=== PATIENT | female | born 1980 | race Caucasian/White ===

== ENCOUNTER 2016-10-08 23:27 | Emergency (ER) | payer MEDICAID ==
--- NOTE | 2016-10-09 00:06 | EDM.PDOC ---
ED HPI GENERAL MEDICAL PROBLEM - General Chief Complaint: ENT Problem Stated Complaint: INFECTED RIGHT EYE Time Seen by Provider: 10/09/16 00:08 Source of Information: Reports: Patient History Limitations: Reports: No Limitations - History of Present Illness INITIAL COMMENTS - FREE TEXT/NARRATIVE: pt is concerned because she has swelling under the rt eye. She has 2 styes one on the upper lid and a larger one on the lower lid with redness around it. Onset: Gradual, Other ( swelling under the eye started today. ) Duration: Hour(s): Associated Symptoms: Reports: No Other Symptoms denies pain Pain Score (Numeric/FACES): 0 - Related Data Allergies Allergy/AdvReac Type Severity Reaction Status Date / Time No Known Allergies Allergy Verified 10/08/16 23:52 Home Meds: Home Meds NK [No Known Home Meds] 10/08/16 [History] Past Medical History HEENT History: Reports: Impaired Vision [employer] History: Reports: - Past Surgical History Female Surgical History: Reports: Section Social & Family History - Tobacco Use Smoking Status *Q: Never Smoker - Caffeine Use Caffeine Use: Reports: Coffee, Soda - Recreational Drug Use Recreational Drug Use: No ED ROS ENT - Review of Systems Review Of Systems: See Below Constitutional: Reports: No Symptoms HEENT: Reports: Eye Discharge, Eye Pain, Other (pt has 2 styes in the rt eye one on the upper lid and one on the lower lid. The one on the lower is quite red. ) Cardiovascular: Reports: No Symptoms Endocrine: Reports: No Symptoms GI/Abdominal: Reports: No Symptoms : Reports: No Symptoms Musculoskeletal: Reports: No Symptoms ED EXAM, ENT - Physical Exam Exam: See Below Text/Narrative:: pt has 2 styes on the rt eye. The smaller one is on the upper lid and the larger one is on the lower. There is redness around the lower lid and there is swellin on the area below the eye. Exam Limited By: No Limitations General Appearance: Alert, Anxious, Other ( the rt eye has 2 styes a smaller one that appeared first on the upper lid and a larger one in the lower lid with redness around it. There is slight swelling below the rt eye. There is no redness in the conjuntivia. ) Ears: Normal TMs Nose: Normal Inspection Mouth/Throat: Normal Inspection Head: Atraumatic Neck: Normal Inspection Respiratory/Chest: No Respiratory Distress Course - Vital Signs Last Recorded V/S: Last Vital Signs Temp 37.2 C 10/08/16 23:46 Pulse 81 10/08/16 23:46 Resp 18 10/08/16 23:46 BP 113/69 10/08/16 23:46 Pulse Ox 97 10/08/16 23:46 Departure - Departure Time of Disposition: 00:03 Disposition: Home, Self-Care 01 Condition: fair Clinical Impression: Stye, Cellulitis of right lower eyelid - Discharge Information Referrals: Gely Mcdonald PA [Primary Care Provider] - Forms: ED Department Discharge Care Plan Goals: moist warm packs to the rt eye multiple times daily, rtc if the swelling below the eye gets worse. keflex 500mg tid take 2 capsules tonight.
== END 2016-10-09 00:20 | disposition home or self-care (01) ==
LOC: JP.ED 23:27
DX: H00.032 Abscess of right lower eyelid (principal); H00.011 Hordeolum externum right upper eyelid; H00.012 Hordeolum externum right lower eyelid
CPT/HCPCS: 99283

== ENCOUNTER 2022-04-08 18:17 | Observation (INO) | payer MEDICAID ==
[2022-04-08] MEDS ORDERED: Ondansetron 4 MG/2 ML SDV IVPUSH ONE (18:57)
[2022-04-08] MEDS ORDERED: HYDROmorphone 0.5 MG/0.5 ML Syringe IVPUSH ONE ×3 (18:57→21:34)
[2022-04-08] MEDS ORDERED: Sodium Chloride 0.9% 1,000 ML IV SCH (19:00)
[2022-04-08 19:30] LABS: ESTIMATED GFR 111 mL/min (>60)
[2022-04-08] MEDS ORDERED: Ampicillin/Sulbactam Na 1.5 GM in Sodium Chloride 0.9% 50 ML IV ONE (19:59)
[2022-04-08] MEDS ORDERED: Ampicillin/Sulbactam Na 1.5 GM Vial ONE (20:25)
[2022-04-08] MEDS ORDERED: Sodium Chloride 0.9% 50 ML ONE (20:26)
[2022-04-08] MEDS ORDERED: oxyCODONE 5 MG Tab PO PRN (22:17)
[2022-04-08] MEDS ORDERED: Ondansetron 4 MG/2 ML SDV IVPUSH PRN (22:22)
[2022-04-08] MEDS: Lactated Ringers 1,000 ML IV SCH (22:33)
[2022-04-08] MEDS: Acetaminophen 500 MG Tab PO SCH (22:37)
[2022-04-09] MEDS ORDERED: HYDROmorphone 0.5 MG/0.5 ML Syringe IVPUSH PRN (01:30)
[2022-04-09] MEDS ORDERED: Ampicillin/Sulbactam Na 1.5 GM in Sodium Chloride 0.9% 50 ML IV SCH (02:00)
[2022-04-09] MEDS ORDERED: Bupivacaine 0.5%/EPINEPHrine 1:200,000 50 ML MDV ONE (05:25)
[2022-04-09] MEDS ORDERED: fentaNYL 250 MCG/5 ML SDV ONE (05:54)
[2022-04-09] MEDS ORDERED: Neostigmine Methylsulfate 1 MG/ML 5 ML Syringe ONE (05:55)
[2022-04-09] MEDS ORDERED: Dexamethasone 4 MG/ML SDV ONE (05:55)
[2022-04-09] MEDS ORDERED: Glycopyrrolate 0.2 MG/ML 5 ML MDV ONE (05:55)
[2022-04-09] MEDS ORDERED: Rocuronium 50 MG/5 ML Vial ONE (05:55)
[2022-04-09] MEDS ORDERED: Ondansetron 4 MG/2 ML SDV ONE (05:55)
[2022-04-09] MEDS ORDERED: Propofol 200 MG/20 ML SDV ONE (05:55)
[2022-04-09] MEDS ORDERED: Ampicillin/Sulbactam Na 1.5 GM in Sodium Chloride 0.9% 50 ML IV ONE (06:04)
[2022-04-09] MEDS ORDERED: Lactated Ringers 1,000 ML ONE (06:43)
[2022-04-09] MEDS: Acetaminophen 500 MG Tab PO SCH (06:48)
[2022-04-09] MEDS ORDERED: fentaNYL 100 MCG/2 ML SDV ONE (07:22)
[2022-04-09] MEDS: Lactated Ringers 1,000 ML IV SCH (09:03)
== END 2022-04-09 13:44 | disposition home or self-care (01) ==
LOC: JP.ED 18:17 → UNDOADMIN 20:45 → INTOOBSV 20:45 → JP.2SS 20:45
PROVIDERS: ADMIT Student in an Organized Health Care Education/Training Program; ATTEND Student in an Organized Health Care Education/Training Program
DX: K35.33 Acute appendicitis with perforation, localized peritonitis, and gangrene, with abscess (principal); K42.9 Umbilical hernia without obstruction or gangrene; D64.9 Anemia, unspecified; E66.9 Obesity, unspecified; K21.9 Gastro-esophageal reflux disease without esophagitis; Z79.899 Other long term (current) drug therapy; Z86.16 Personal history of COVID-19; Z20.822 Contact with and (suspected) exposure to COVID-19
CPT/HCPCS: 36415; 44970; 74176; 80048; 80053; 81001; 81025; 83690; 83735; 84100; 85025; 85027; 87635; 88304; 96361; 96365; 96375; 96376; 99285; A9270; G0378; J0295; J1100; J1170; J2405; J2704; J2710; J3010; J3490; J7030; J7120; U0002